=== PATIENT | male | born 1990 | race Caucasian/White ===

== ENCOUNTER 2022-06-21 16:16 | Emergency (ER) | payer OTHER, SELFPAY ==
[2022-06-21 16:17] VITALS: BP 144/91; PULSE 72; RESP 14; TEMP 36.4; O2SAT 99; BMI 26.6
[2022-06-21 16:34] VITALS: BP 136/83; PULSE 71; RESP 12; O2SAT 98
--- NOTE | 2022-06-21 16:42 | EKG12_ITS ---
Test Reason : CP Blood Pressure : / mmHG Vent. Rate : 068 BPM Atrial Rate : 068 BPM P-R Int : 162 ms QRS Dur : 100 ms QT Int : 388 ms P-R-T Axes : 056 055 028 degrees QTc Int : 412 ms Normal sinus rhythm Incomplete right bundle branch block Borderline ECG Confirmed by SUMEET BRAVO, HUY ([id number]), film editor supervisor YARELI CAREY ([id number]) on 06/26/2022 9:15:16 A M Referred By: Confirmed By:NAYE FAY MD
--- NOTE | 2022-06-21 16:43 | ED.VIS.CHEST ---
HPI History of Present Illness Chief Complaint: Chest Pain Informant: patient Onset/Context/Timing Onset: Days (3) Activity at onset: gradual and onset Timing: Continuous Quality: Positive for Aching Location: Right Parasternal and Left Parasternal Current Severity: Mild Maximum Severity: Moderate Worsened By: Movement of Torso, Palpation and Coughing; Not Worsened By Breathing Relieved By: Remaining Still Associated Symptoms: Positive for Cough (minor); Negative for Nausea, Vomiting, Diaphoresis, Dyspnea, Fever, Lightheadedness, Acid Reflux or Palpitations Narrative Narrative: Patient initially presented to urgent care and referred here after they did an EKG. He brought it with him it looks normal. He has been having discomfort in his mid chest without radiation that is worse when he moves about the torso. Specifically, when he actively sits up it hurts worse, when he rolls over in bed it hurts, and when he arches his back to raise his chest it hurts worse. When he is remaining still he has no pain. He has a very minor cough, his daughter has bronchitis right now but he states his cough is so minor and rare that he knows he does not have bronchitis but he had pneumonia in the past and he just wants to be safe. He had COVID couple months ago and seemed to recover from it without any difficulties. No recent travel out of the area, immobilization, hospitalization, surgery, history of DVT or PE, or recent leg pain or swelling. Patient states several days ago, he was doing a lot of raking although he did not feel like he injured himself. This started a day or so after that. [facility] Medical History Generalized anxiety disorder Pneumonia Home Medications naproxen 500 mg tablet 500 mg PO BID PRN #20 tabs 06/21/22 [Rx Last Taken Unknown] Allergy/AdvReac Type Severity Reaction Status Date / Time No Known Allergies Allergy Verified 06/21/22 16:25 Social History Smoking Status: Never smoker ROS ROS ED Constitutional Constitutional ED: Denies chills or fever(s) Eyes Eyes: Denies change in vision or diplopia ENT ENT ED: Denies rhinorrhea or sore throat Cardiovascular Cardiovascular: Reports as per HPI and chest pain; Denies leg edema or palpitations Respiratory/Chest Respiratory/Chest: Reports cough; Denies dyspnea Gastrointestinal Gastrointestinal: Denies abdominal pain, diarrhea, nausea or vomiting Genitourinary Genitourinary ED: Denies dysuria or hematuria Musculoskeletal Musculoskeletal: Denies back pain or neck pain Integumentary Denies abscess or rash Neurologic Neurologic: Denies headache(s), paresthesias or weakness Psychiatric Psychiatric: Denies anxiety or suicidal thoughts EXAM Physical Exam Const Vital Signs: 06/21/22 16:17 06/21/22 16:26 06/21/22 16:34 Temperature 97.5 F L Temperature Source Temporal Pulse Rate 72 71 Respiratory Rate 14 12 Respiratory Effort Normal Non-Labored Blood Pressure 144/91 H 136/83 H Blood Pressure Mean 108 100 Pulse Ox 99 98 Oxygen Delivery Method Room Air Room Air Positive well nourished and well developed General Appearance ED: well developed and NAD HEENT Reports moist mucous membranes normocephalic and atraumatic Eyes PERRL and EOMs intact bilaterally Neck full ROM and supple Chest Wall inspection of chest normal Chest Narrative: Tenderness reproducing the patient's pain parasternal bilaterally and diffusely. No rash. No crepitance. No subcutaneous emphysema. Equal breath sounds bilaterally. Resp normal respiratory effort and clear to auscultation bilaterally Resp Narrative: No splinting with deep inspiration Cardio regular rate, regular rhythm and no murmurs Rate: Negative for tachycardic GI non-tender and non-distended Auscultation: normoactive bowel sounds Palpation: soft Back/Spine no CVA tenderness General Back: other FROM Extremity normal to inspection and no calf tenderness General Extremety ED: Negative for edema, pulses abnormal or tenderness General Extremity: Negative for edema or pulses abnormal Neuro oriented x3, CN's II-XII intact bilaterally and no sensory deficits noted Sensorium / Orientation: awake and alert Motor Exam: strength 5/5 throughout Psych mental status grossly normal Skin no rashes or lesions noted and no wounds MDM MDM MDM Narrative Medical decision making narrative: I repeated the patient's EKG, it also shows RSR prime, which is a normal variant and an otherwise healthy 31-year-old male with a normal heart, this is a normal EKG. I did a chest x-ray 2 views of my interpretation are normal, patient is reassured his history and exam are consistent with costochondritis. He was given an injection of Toradol here as well as a prescription for Naprosyn and reassured, advised to follow-up if he does not have improvement after a week, we discussed reasons to return. Of note his PERC score is 0, and his discomfort is nonpleuritic. Radiography Chest X-Ray - ED: 2 View, Read by ED Physician, No Acute Disease and No Infiltrates Rhythm Strip Rhythm Strip: Sinus Rhythm Rate: 70 Ectopy: None EKG Initial EKG: Attestation: I personally reviewed and interpreted this EKG as follows: Interpretation: Sinus Rhythm and No Acute Injury Pattern Comments: RSR'. Normal EKG. Discharge Plan Triage Chief Complaint: Chest Pain ED Provider: Gerhard Mcelroy Dx/Rx/DC Orders Clinical Impression: Acute costochondritis Instructions: ED Chest Wall Pain, Costochondritis Prescriptions: New naproxen 500 mg tablet 500 mg PO BID PRN Qty: 20 0RF Primary Care Provider: Care Physician,No Primary Referrals: Doctor,Your [Non-Staff] - 1 Week if not improving Disposition Disposition: Home, Self Care
[2022-06-21] MEDS: Ketorolac 60 MG/2 ML Vial IM (16:46)
--- NOTE | 2022-06-21 17:00 | RAD_ITS ---
EXAM: XR CHEST, 2 VIEWS CLINICAL INDICATION: chest pain TECHNIQUE: Frontal and lateral views of the chest. This report was created using [employer] report generation technology. COMPARISON: None. FINDINGS: LUNGS AND PLEURAL SPACES: Unremarkable. No consolidation or edema. No pneumothorax. No effusion. HEART: Unremarkable. Cardiac silhouette not enlarged. MEDIASTINUM: Central airways and mediastinal contour are unremarkable. BONES/JOINTS: Unremarkable. SOFT TISSUES: Unremarkable. RAD/Chest PA and Lateral IMPRESSION: No radiographic evidence of acute cardiopulmonary disease. Electronically Signed: Malachi Dunham MD at 18:04 EST ,
== END 2022-06-21 17:29 | disposition home or self-care (01) ==
PROVIDERS: Emergency Provider Emergency Medicine; Visit Provider Emergency Medicine
DX: M94.0 Chondrocostal junction syndrome [Tietze] (principal); R07.9 Chest pain, unspecified; R05.9 Cough, unspecified
CPT/HCPCS: 71046; 93005; 96372; 99282